=== PATIENT | male | born 1985 | race Caucasian/White ===

== ENCOUNTER → 2023-07-30 14:15 | Outpatient (CLI) | payer OTHER, SELFPAY ==
[2023-07-30 15:04] LABS: Semen Sperm Prescence Post-Vas Absent (ABSENT)
== END ==
PROVIDERS: Referring Provider Specialist; Visit Provider Specialist
DX: Z98.52 Vasectomy status (principal)
CPT/HCPCS: 89321

== ENCOUNTER 2024-08-06 19:19 | Emergency (ER) | payer OTHER, SELFPAY ==
[2024-08-06 19:23] VITALS: BP 131/84; PULSE 94; RESP 18; TEMP 37.2; O2SAT 100; BMI 26.7
--- NOTE | 2024-08-06 20:10 | ED_ITS ---
HPI - Eye Problem General Chief complaint: Eye Problems Stated complaint: Injury to RT eye from piece of wood; Irritated Time Seen by Provider: 08/06/24 20:10 Source: patient Mode of arrival: Ambulatory History of Present Illness HPI Narrative: 38-year-old male without any significant past medical history presents to the ED for foreign body sensation to the right eye he states that at around 3:00 p.m. today he was cutting a tree when the tree branch hit his eye, he does not wear contacts does not wear corrective lenses. Since then he has had a foreign body feeling to his eye. Patient denies any actual visual loss or disturbances. No headache no other concerns or issues at this time. Related Data Previous Rx's Medication Instructions Recorded erythromycin 5 mg/gram (0.5 %) eye 0.5 inch EYE-RIGHT Q6H 5 days #3.5 08/06/24 ointment grams Allergies Allergy/AdvReac Type Severity Reaction Status Date / Time No Known Drug Allergies Allergy Verified 04/28/23 15:59 Review of Systems Review of Systems Narrative: General: Denies fever, chills, weight loss HEENT: Foreign body sensation to the right eye, Denies headache, eye drainage, head trauma, sore throat, voice change Cardiovascular: Denies any chest pain, palpitations, shortness of breath, tachycardia Respiratory: Denies any shortness of breath, cough, wheeze, stridor GI/: Denies any abdominal pain, nausea, vomiting, diarrhea, bright red blood per rectum, melanotic stools, urinary frequency, urinary retention, dysuria, hematuria MSK: Denies any joint pain, muscle pains, swelling Skin: Denies any rashes, lesions, discoloration Neuro: Denies any headache, lightheadedness, dizziness, fainting, weakness Psych: Denies SI/HI Patient History Medical History (Updated 08/06/24 @ 20:14 by Anant Donahue DO) Sterilization consult Encounter for sterilization Family History Mother Kidney stones Father Kidney stones Social History marital status: number of children: 1 Previous occupational history: Advertising Sales Representative Smoking Status: Never smoker alcohol intake: current caffeine: Yes Type(s) of exercise: weight lifting frequency: 3-4 times per week duration: 45-60 minutes/day Smoking Status: Never smoker Exam Narrative Exam Narrative: General: Cooperative, comfortable, well-developed, not in acute distress HEENT: Corneal abrasion noted to the right eye to the 5'oclock region, does not cover the iris negative Jamie sign, Normocephalic, atraumatic, PERRLA, normal sclera, eyelids normal, Neck: Active full range of motion, atraumatic Chest: Normal to inspection, negative crepitus, no overlying erythema ecchymosis Respiratory: Normal respiratory effort, not in acute respiratory distress, clear to auscultation bilaterally negative cough, wheeze, tachypnea, rhonchi, rales Cardiology: Regular rate rhythm negative gallop, murmur, rubs GI/: Normal to inspection, soft, nonrigid, no tenderness to palpation, e xam deferred MSK: Full range of active range of motion of all 4 extremities, atraumatic Skin: No rashes lesions noted Neuro: Alert awake oriented x3, moves all 4 extremities spontaneously, cranial nerves intact, able to answer all questions appropriately follows commands appropriately Psych: Cooperative, negative suicidal or homicidal ideations Initial Vital Signs Initial Vital Signs: Vital Signs Temperature 98.9 F 08/06/24 19:23 Pulse Rate 94 H 08/06/24 19:23 Respiratory Rate 18 08/06/24 19:23 Blood Pressure 131/84 08/06/24 19:23 Pulse Oximetry 100 08/06/24 19:23 Oxygen Delivery Method Room Air 08/06/24 19:23 Course Orders Ordered: Discontinued Medications Fluorescein Sodium (Fluorescein 1 Mg Strip) 1 mg EYE-RIGHT NOW ONE Stop: 08/06/24 19:47 Proparacaine HCl (Proparacaine 0.5% Ophth Jasmina) 2 drops EYE-OP NOW ONE Stop: 08/06/24 19:46 Vital Signs Vital signs: Vital Signs - 8 hr 08/06/24 19:23 Temperature 98.9 F Pulse Rate 94 H Respiratory Rate 18 Blood Pressure 131/84 Pulse Oximetry 100 Oxygen Delivery Method Room Air MDM - Eye Problem Differential Diagnosis Differential diagnosis: Likely corneal abrasion, acute iritis and ruptured globe MDM Narrative Medical decision making narrative: 38-year-old male without any pertinent past medical history presents for foreign body sensation in the right eye after a tree branch hit his right eye after cutting it around 3:00 p.m. today. He does not wear contacts does not wear corrective lenses, not having any visual disturbances, on exam patient with corneal abrasion noted at the 5'o clock region, no loss of vision. Patient will be sent home with erythromycin ointment instructed follow up with Ophthalmology in outpatient setting he verbalized understanding of this was given strict return precautions understands and agrees to being discharged home with outpatient follow up Discharge Plan Departure Patient Disposition: Home Clinical Impression: Corneal abrasion Instructions: DI for Corneal Abrasion Activity Restrictions/Additional Instructions: Please follow up with Ophthalmology Please read the discharge instructions sheet carefully and bring all papers to all doctor follow-up visits, as it may contain information that your doctor may want to see. Disease processes change and evolve, if your symptoms worsen or if you develop any new symptoms that are concerning to you please return for evaluation. Your evaluation today does not show any evidence of any life- threatening/serious illnesses requiring admission to the hospital or surgery. Please follow-up with your doctor for re-evaluation in approximately 1 day. Seek immediate medical attention for any worrisome symptoms. *If you do not have a primary care provider please contact the [facility] Resource line at [phone]. They will ask some questions about your medical history and help get you set up with a doctor in the community. Prescriptions: New erythromycin 5 mg/gram (0.5 %) ointment 0.5 inch EYE-RIGHT Q6H 5 Days Qty: 3.5 0RF Referrals: ProviderRocio [Primary Care Provider] - Stand Alone Forms: Patient Portal/API/Survey
[2024-08-06] MEDS: ERYTHROMYCIN OPHTH 1 GM OINT 1 APPLIC EYE-RIGHT (20:14)
[2024-08-06] MEDS: FLUORESCEIN 1 MG STRIP EYE-RIGHT (20:17)
[2024-08-06] MEDS: PROPARACAINE 0.5% OPHTH SOL 2 DROPS EYE-OP (20:17)
== END 2024-08-06 20:23 | disposition home or self-care (01) ==
PROVIDERS: Emergency Provider Student in an Organized Health Care Education/Training Program
DX: S05.01XA Injury of conjunctiva and corneal abrasion without foreign body, right eye, initial encounter (principal); W22.8XXA Striking against or struck by other objects, initial encounter
CPT/HCPCS: 99282